=== PATIENT | male | born 1975 | race African-American/Black ===

== ENCOUNTER 2016-07-09 11:15 | Inpatient (IN) | payer MEDICAID ==
[~2016-07-09] VITALS: Ht 188 cm; Wt 95.0 kg
[~2016-07-09 11:15] MED LIST: DIPH50 PO; QUET200T PO; QUET300T2 PO; SERT100T12 PO; TRAZ-144 PO
[2016-07-09 11:43] VITALS: BP 130/74
[2016-07-09] MEDS ORDERED: MAGNESIUM HYDROXIDE SUSPENSION 30 ML UDCUP PO PRN (11:45)
[2016-07-09] MEDS ORDERED: QUEtiapine FUMARATE 100 MG TABLET PO PRN (11:45)
[2016-07-09] MEDS ORDERED: PROMETHAZINE HCL 25 MG TABLET PO PRN (11:45)
[2016-07-09] MEDS ORDERED: HydrOXYzine PAMOATE 50 MG CAPSULE PO PRN (11:45)
[2016-07-09] MEDS ORDERED: ZOLPIDEM TARTRATE 10 MG TABLET PO PRN (11:45)
[2016-07-09] MEDS ORDERED: GuaiFENesin/D-METHORPHAN [SUGAR-FREE] 200-20MG/10 ML SYRUP UDCUP PO PRN (11:45)
[2016-07-09] MEDS ORDERED: MAG HYDROX/AL HYDROX/SIMETH ES 30 ML SUSPENSION UDCUP PO PRN (11:45)
[2016-07-09] MEDS ORDERED: LOPERAMIDE HCL 2 MG CAPSULE PO PRN (11:45)
[2016-07-09] MEDS ORDERED: ACETAMINOPHEN 325 MG TABLET PO PRN (11:45)
[2016-07-09] MEDS ORDERED: TRAZ-144 PO (11:56)
[2016-07-09] MEDS ORDERED: DIPH50 PO (11:56)
[2016-07-09 16:16] VITALS: BP 108/63
[2016-07-09] MEDS: THIAMINE HCL 100 MG TABLET PO SCH (16:51)
[2016-07-09] MEDS ORDERED: QUEtiapine FUMARATE 200 MG TABLET PO SCH (21:00)
[2016-07-09] MEDS ORDERED: MIRTAZAPINE 15 MG TABLET PO SCH (21:00)
[2016-07-10 05:45] VITALS: BP 133/72
[2016-07-10 08:42] VITALS: BP 130/75
[2016-07-10] MEDS: THIAMINE HCL 100 MG TABLET PO SCH ×3 (09:00→16:55)
[2016-07-10] MEDS: NALTREXONE HCL 50 MG TABLET PO SCH ×2 (09:00→09:37)
[2016-07-10] MEDS ORDERED: SERTRALINE HCL 50 MG TABLET PO SCH ×2 (09:00→21:00)
[2016-07-10] MEDS: MULTIVITAMINS WITH MINERALS, THERAPEUTIC TABLET PO SCH ×2 (09:00→09:37)
[2016-07-10] MEDS: NICOTINE 21 MG/24 HOUR PATCH TD SCH ×2 (09:00→09:37)
[2016-07-10] MEDS: FOLIC ACID 1 MG TABLET PO SCH ×2 (09:00→09:37)
[2016-07-10 16:31] VITALS: BP 112/64
[2016-07-10] MEDS: TraZODone HCL 50 MG TABLET PO SCH (20:58)
[2016-07-10] MEDS: DiphenhydrAMINE HCL 50 MG CAPSULE PO SCH (20:59)
[2016-07-10] MEDS ORDERED: QUEtiapine FUMARATE 200 MG TABLET PO SCH (21:00)
[2016-07-11 06:46] VITALS: BP 100/56
[2016-07-11 08:19] VITALS: BP 105/62
[2016-07-11] MEDS: NALTREXONE HCL 50 MG TABLET PO SCH (09:00)
[2016-07-11] MEDS: FOLIC ACID 1 MG TABLET PO SCH (09:00)
[2016-07-11] MEDS: MULTIVITAMINS WITH MINERALS, THERAPEUTIC TABLET PO SCH (09:00)
[2016-07-11] MEDS: THIAMINE HCL 100 MG TABLET PO SCH ×2 (09:00→16:32)
[2016-07-11] MEDS: NICOTINE 21 MG/24 HOUR PATCH TD SCH (09:00)
[2016-07-11 16:10] VITALS: BP 113/66
[2016-07-11] MEDS: QUEtiapine FUMARATE 300 MG TABLET PO SCH (20:33)
[2016-07-11] MEDS: DiphenhydrAMINE HCL 50 MG CAPSULE PO SCH (20:33)
[2016-07-11] MEDS: SERTRALINE HCL 100 MG TABLET PO SCH (20:33)
[2016-07-11] MEDS: TraZODone HCL 50 MG TABLET PO SCH (20:33)
[2016-07-12 00:24] VITALS: BP 107/66
[2016-07-12 08:10] VITALS: BP 112/60
[2016-07-12] MEDS: NICOTINE 21 MG/24 HOUR PATCH TD SCH (09:00)
[2016-07-12] MEDS: MULTIVITAMINS WITH MINERALS, THERAPEUTIC TABLET PO SCH (09:35)
[2016-07-12] MEDS: FOLIC ACID 1 MG TABLET PO SCH (09:35)
[2016-07-12] MEDS: THIAMINE HCL 100 MG TABLET PO SCH ×2 (09:35→16:09)
[2016-07-12] MEDS: NALTREXONE HCL 50 MG TABLET PO SCH (09:35)
[2016-07-12] MEDS: LORazepam 2 MG TABLET PO PRN (16:09)
[2016-07-12 16:12] VITALS: BP 115/66
[2016-07-12] MEDS: SERTRALINE HCL 100 MG TABLET PO SCH (20:35)
[2016-07-12] MEDS: TraZODone HCL 50 MG TABLET PO SCH (20:35)
[2016-07-12] MEDS: QUEtiapine FUMARATE 300 MG TABLET PO SCH (20:35)
[2016-07-12] MEDS: DiphenhydrAMINE HCL 50 MG CAPSULE PO SCH (20:35)
[2016-07-13 00:54] VITALS: BP 105/63
[2016-07-13 08:52] VITALS: BP 102/60
[2016-07-13] MEDS: FOLIC ACID 1 MG TABLET PO SCH (09:00)
[2016-07-13] MEDS: MULTIVITAMINS WITH MINERALS, THERAPEUTIC TABLET PO SCH (09:00)
[2016-07-13] MEDS: NALTREXONE HCL 50 MG TABLET PO SCH (09:00)
[2016-07-13] MEDS: NICOTINE 21 MG/24 HOUR PATCH TD SCH (09:00)
[2016-07-13] MEDS: THIAMINE HCL 100 MG TABLET PO SCH ×2 (09:00→16:07)
[2016-07-13] MEDS: LORazepam 2 MG TABLET PO PRN (16:11)
[2016-07-13 17:00] VITALS: BP 120/63
[2016-07-13] MEDS: QUEtiapine FUMARATE 300 MG TABLET PO SCH (20:20)
[2016-07-13] MEDS: SERTRALINE HCL 100 MG TABLET PO SCH (20:21)
[2016-07-13] MEDS: TraZODone HCL 50 MG TABLET PO SCH (20:21)
[2016-07-13] MEDS: DiphenhydrAMINE HCL 50 MG CAPSULE PO SCH (20:21)
[2016-07-14 07:02] VITALS: BP 102/68
[2016-07-14] MEDS: NICOTINE 21 MG/24 HOUR PATCH TD SCH (09:00)
[2016-07-14 09:02] VITALS: BP 104/60
[2016-07-14] MEDS: FOLIC ACID 1 MG TABLET PO SCH (09:05)
[2016-07-14] MEDS: NALTREXONE HCL 50 MG TABLET PO SCH (09:06)
[2016-07-14] MEDS: THIAMINE HCL 100 MG TABLET PO SCH ×2 (09:06→16:28)
[2016-07-14] MEDS: MULTIVITAMINS WITH MINERALS, THERAPEUTIC TABLET PO SCH (09:06)
[2016-07-14] MEDS ORDERED: BENZOCAINE 10% 7 GM GEL TP PRN (10:15)
[2016-07-14] MEDS ORDERED: IBUPROFEN 600 MG TABLET PO PRN (10:15)
[2016-07-14] MEDS: AMOXICILLIN TRIHYDRATE 500 MG CAPSULE PO SCH ×2 (12:56→16:28)
[2016-07-14 16:07] VITALS: BP 117/76
[2016-07-14] MEDS: QUEtiapine FUMARATE 300 MG TABLET PO SCH (20:46)
[2016-07-14] MEDS: DiphenhydrAMINE HCL 50 MG CAPSULE PO SCH (20:46)
[2016-07-14] MEDS: SERTRALINE HCL 100 MG TABLET PO SCH (20:46)
[2016-07-14] MEDS: TraZODone HCL 50 MG TABLET PO SCH (20:47)
[2016-07-15 03:10] VITALS: BP 105/66
[2016-07-15 08:44] VITALS: BP 111/66
[2016-07-15] MEDS: MULTIVITAMINS WITH MINERALS, THERAPEUTIC TABLET PO SCH (08:53)
[2016-07-15] MEDS: THIAMINE HCL 100 MG TABLET PO SCH ×2 (08:53→16:46)
[2016-07-15] MEDS: FOLIC ACID 1 MG TABLET PO SCH (08:53)
[2016-07-15] MEDS: NALTREXONE HCL 50 MG TABLET PO SCH (08:53)
[2016-07-15] MEDS: AMOXICILLIN TRIHYDRATE 500 MG CAPSULE PO SCH ×3 (08:53→16:46)
[2016-07-15] MEDS: NICOTINE 21 MG/24 HOUR PATCH TD SCH (09:00)
[2016-07-15] MEDS: LORazepam 2 MG TABLET PO PRN (12:58)
[2016-07-15 16:12] VITALS: BP 106/72
[2016-07-15] MEDS: DiphenhydrAMINE HCL 50 MG CAPSULE PO SCH (20:23)
[2016-07-15] MEDS: QUEtiapine FUMARATE 300 MG TABLET PO SCH (20:23)
[2016-07-15] MEDS: SERTRALINE HCL 100 MG TABLET PO SCH (20:23)
[2016-07-15] MEDS: TraZODone HCL 50 MG TABLET PO SCH (20:24)
[2016-07-16 02:15] VITALS: BP 101/60
[2016-07-16 08:40] VITALS: BP 113/69
[2016-07-16] MEDS: NALTREXONE HCL 50 MG TABLET PO SCH (08:52)
[2016-07-16] MEDS: FOLIC ACID 1 MG TABLET PO SCH (08:52)
[2016-07-16] MEDS: THIAMINE HCL 100 MG TABLET PO SCH (08:52)
[2016-07-16] MEDS: AMOXICILLIN TRIHYDRATE 500 MG CAPSULE PO SCH ×2 (08:52→13:20)
[2016-07-16] MEDS: MULTIVITAMINS WITH MINERALS, THERAPEUTIC TABLET PO SCH (08:52)
[2016-07-16] MEDS: LORazepam 2 MG TABLET PO PRN (09:22)
[2016-07-16] MEDS: NICOTINE 21 MG/24 HOUR PATCH TD SCH (09:22)
[2016-07-16] MEDS ORDERED: NALT50TA10 PO (09:31)
[2016-07-16] MEDS ORDERED: AMOX250C4 PO (09:38)
[2016-07-16] MEDS ORDERED: QUET300T2 PO (10:49)
== END 2016-07-16 14:45 | disposition home or self-care (01) | DRG 750 ==
LOC: B2S 11:48
PROVIDERS: ADMIT Psychiatry & Neurology Psychiatry; ATTEND Psychiatry & Neurology Psychiatry
DX: F25.0 Schizoaffective disorder, bipolar type (principal); R45.851 Suicidal ideations; Z91.19 Patient's noncompliance with other medical treatment and regimen; F15.10 Other stimulant abuse, uncomplicated; F12.90 Cannabis use, unspecified, uncomplicated; F17.210 Nicotine dependence, cigarettes, uncomplicated; G47.00 Insomnia, unspecified; K08.89 Other specified disorders of teeth and supporting structures; Z91.5 Personal history of self-harm; Z59.0 Homelessness; Z81.8 Family history of other mental and behavioral disorders; Z71.6 Tobacco abuse counseling; Z72.89 Other problems related to lifestyle; Z71.41 Alcohol abuse counseling and surveillance of alcoholic; Z79.899 Other long term (current) drug therapy
CPT/HCPCS: 80307